=== PATIENT | male | born 1960 | race Caucasian/White ===

== ENCOUNTER 2018-08-10 13:20 | Day surgery (SDC) | payer OTHER ==
[2018-08-10] MEDS ORDERED: FLUMAZENIL 0.5 MG/5 ML MDV IVP PRN (13:58)
[2018-08-10] MEDS ORDERED: ALTEPLASE 2 MG VIAL IVP PRN (13:58)
[2018-08-10] MEDS ORDERED: MIDAZOLAM 2 MG/2 ML VIAL IVP PRN (13:58)
[2018-08-10] MEDS ORDERED: PROTAMINE SULFATE 50 MG/5 ML VIAL IVP PRN (13:58)
[2018-08-10] MEDS ORDERED: fentaNYL 100 MCG/2 ML INJ IVP PRN (13:58)
[2018-08-10] MEDS ORDERED: HEPARIN 10,000 UNIT/10 ML MDV (1,000 UNIT/ML) IVP PRN (13:58)
[2018-08-10] MEDS ORDERED: GLUCAGON HCL 1 MG VIAL IVP PRN (13:58)
[2018-08-10] MEDS ORDERED: NALOXONE HCL 0.4 MG/ML INJ IVP PRN (13:58)
[2018-08-10] MEDS ORDERED: NS 1,000 ML IV SCH (14:00)
[2018-08-10] MEDS ORDERED: fentaNYL 100 MCG/2 ML INJ ONE (14:35)
[2018-08-10] MEDS ORDERED: FLUMAZENIL 0.5 MG/5 ML MDV IVP ONE (14:35)
[2018-08-10] MEDS ORDERED: NALOXONE HCL 0.4 MG/ML INJ ONE (14:35)
[2018-08-10] MEDS ORDERED: MIDAZOLAM 2 MG/2 ML VIAL ONE (14:35)
--- NOTE | 2018-08-10 14:44 | PDHPUP ---
History & Physical Update H&P update statement: This history and physical update is based on an assessment of the patient which was completed after admission or registration (within 24 hours), but prior to the surgery/procedure. H&P update: H&P reviewed & patient examined, no change in patient's condition since H&P completed
--- NOTE | 2018-08-10 14:45 | PDPROPOC ---
Sedation Plan of Care Sedation Plan of Care: vital signs stable, mental status noted, patient educated of risks, benefits, alternatives, patient can tolerate sedation ASA Classification: ASA 2 Planned drugs: fentanyl, midazolam Mallampati Score: Class 2 Mallampati Reference Image: Patient passed 3-3-2 rule?: Yes
--- NOTE | 2018-08-10 16:03 | PDCONSULT ---
Evp Note: NEUROENDOVASCULAR resting well, no complaints AAOx3, speech fluent CNII-XII grossly normal full strength and sensation, no drift groin c/d/i, distal pulses palpable s/p diagnostic angiogram, 6mm Acomm aneurysm - doing well - flat x 3 hours - d/c home - will scheduled f/u appt in clinic to discuss options [place]
[2018-08-10] MEDS ORDERED: ONDANSETRON 4 MG/2 ML VIAL IVP PRN (16:04)
[2018-08-10] MEDS ORDERED: OXYCODONE/APAP 5/325 TAB PO PRN (16:04)
[2018-08-10] MEDS ORDERED: IOPAMIDOL (ISOVUE-300) 100 ML BTL ONE (16:44)
[2018-08-10 18:21] VITALS: BP 134/65
== END 2018-08-10 19:24 | disposition home or self-care (01) ==
LOC: FIMAGING 13:20
PROVIDERS: ATTEND Neurological Surgery
DX: I67.1 Cerebral aneurysm, nonruptured (principal); Z87.891 Personal history of nicotine dependence
CPT/HCPCS: 36216; 99152; C1769; J1644; J2250; J2310; J3010; Q9967